=== PATIENT | female | born 1975 | race Caucasian/White ===

== ENCOUNTER 2016-12-23 19:10 | Emergency (ER) | payer OTHER ==
[~2016-12-23] VITALS: Ht 157.5 cm; Wt 97.5 kg
[~2016-12-23 19:10] MED LIST: ALBUTEROL 3 ML3 ML INH; AUGMENTIN 875-1 EACH PO; BACTRIM DS TAB1 EACH PO; BIOTIN2500 MCG PO; BIOTIN5 M1 PO; CALCIUM CARBON200 MG PO; CARAFATE1 GM/10 ML PO; CEPHALEXIN500 MG PO; CYMBALTA60 MG PO; DILAUDID2 MG PO; DRONABINOL2.5 M1 PO; FIORICET 325 MG1 TAB PO; FLEXERIL10 MG PO; GLUCERNA 1.2 C237 ML G TUBE; HYCET 325 MG/1473 ML PO; HYDRODIURIL 2525 MG PO; HYDROMORPHONE HC2 M1 PO; K-TAB ER10 MEQ PO; KEFLEX500 M1 PO; LOMOTIL 2.5-0.1 EACH PO; LOVENOX 4040 MG/0.4 SC; Labs; MASON NATURAL2000 IU PO; MEDROL DOSEPAK1 PAC PO; MULTI-DAY VITA1 EACH PO; NEURONTIN100 M1 PO; NIFEDIPINE ER90 MG PO; NOR-Q-D0.35 MG; NOR-Q-D0.35 MG PO; NOR-QD0.35 MG PO; PANTOPRAZOLE SO40 MG PO; PERCOCET 10-321 EACH PO; PERCOCET 325 MG-5 MG PO; PERCOCET 325 MG1 TA2 PO; PERCOCET 5-3251 EACH PO; PHENERGAN25 M2 PO; POTASSIUM CHLO20 ME2 PO; PREDNISONE10 MG PO; PREVACID SOLUTA15 MG PO; PROAIR HFA0.09 MG/Ac INH; PROMETHAZINE HC25 M3 PO; PROTONIX 40MG T40 MG PO; PROTONIX40 M3 PO; REGLAN INJ10 MG/2 M1 PO; REGLAN10 M1 PO; SINGULAIR10 MG PO; SYMBICORT 160/41 PUF INH; TESSALON PERLE100 MG PO; TYLENOL 16OMG/51 BOT PO; VITAMIN B-12500 MC1 SL; VITAMIN B122500 MC1 PO; VITAMIN D2000 UNIT PO; ZITHROMAX Z-PA250 M1 PO; ZOFRAN 4MG ORALL4 MG PO; ZOFRAN ODT4 M1 PO
--- NOTE | 2016-12-23 23:39 | ED GENERAL ADULT ---
History of Present Illness General Chief Complaint: Abdominal Pain/Flank Pain Stated Complaint: RIGHT SIDED AND PAIN, X 1 DAY Source: patient Exam Limitations: no limitations Vital Signs & Intake/Output Vital Signs & Intake/Output Vital Signs Date Time Temp Pulse Resp B/P B/P Pulse O2 O2 Flow FiO2 Mean Ox Delivery Rate 12/24 0117 97.5 56 22 114/58 100 12/23 2242 98.4 68 19 115/78 99 Room Air 12/23 1948 98.5 62 20 119/83 100 Room Air ED Intake and Output 12/24 0000 12/23 1200 Intake Total Output Total Balance Patient 215 lb Weight Weight Reported by Patient Measurement Method Allergies Coded Allergies: adhesive tape (RASH 12/23/16) Reconcile Medications Biotin (Unknown Strength) CAPSULE (Unknown Dose) PO DAILY SUPPLEMENT ( Reported) Calcium Carbonate (Unknown Strength) TAB.CHEW (Unknown Dose) PO DAILY SUPPLEMENT (Reported) Cholecalciferol (Vitamin D3) (Vitamin D) (Unknown Strength) CAPSULE (Unknown Dose) PO DAILY SUPPLEMENT (Reported) Cyanocobalamin (Vitamin B-12) (Vitamin B-12) (Unknown Strength) TAB.SUBL ( Unknown Dose) SL DAILY SUPPLEMENT (Reported) Gabapentin (Neurontin) 100 MG CAPSULE 1 CAP PO BID NERVE PAIN (Reported) Hydromorphone HCl 2 MG TABLET 1-2 TAB PO Q4P PRN pain Multivitamin (Multi-Day Vitamins) 1 EACH TABLET 1 TAB PO DAILY SUPPLEMENT ( Reported) Pantoprazole Sodium (Protonix) 40 MG TABLET.DR 1 TAB PO BID INDIGESTION Triage Note: TRIAGE: PT TO ER C/C R MID/LOW ABD PAIN WITH RADIATION TO R SIDE. ONSET THIS MORNING, CONSTANT SINCE ONSET. REPORTS HX OF UMBILICAL HERNIA REPAIR AND HAS PAIN IN THE EXACT SAME SPOT. ALSO HAS HX OF GASTRIC BYPASS/REVERSAL, FEEDING TUBE CHOLECYSTECTOMY, TUBAL LIGATION AND . -N/V, HAS DIARRHEA AT BASELINE AND IS NOT ANY WORSE TODAY. -URINARY S/S. CURRENTLY WITH MENSES, REPORTS IT STARTED OVER NIGHT AND "IT'S VERY HEAVY". Triage Nurses Notes Reviewed? yes : No Patient currently breastfeeds: No HPI: 41-year-old female with a past medical history of asthma, obstructive sleep apnea, GERD, status post hernia repair, status post cholecystectomy presenting with sudden onset of gradually worsening, constant, sharp nonradiating right lower quadrant pain 12 hours. Denies fevers, nausea, vomiting, dysuria, vaginal discharge. Last menstrual period 2 days ago. Reports diarrhea at baseline which is currently unchanged. (RIGO QUEEN PA-C) Past History Travel History Traveled to [place] past 21 day No Medical History Any Pertinent Medical History? see below for history Neurological: NONE EENT: NONE Cardiovascular: NONE Respiratory: asthma, obstructive sleep apnea Gastrointestinal: GERD, HERNIA REPAIR G-TUBE PLACED/REMOVED Hepatic: cholelithiasis, CHOLECYSTECTOMY Renal: NONE Musculoskeletal: NONE Psychiatric: NONE Endocrine: obesity Blood Disorders: NONE Cancer(s): NONE MANAGER INSIDE/Reproductive: NONE History of MRSA: No History of VRE: No History of CDIFF: No Surgical History Surgical History: cholecystectomy, , hernia repair-incisional, hernia repair-umbilical, tubal ligation, gastric bypass JONNY Psychosocial History Who do you live with Family Services at Home None What is your primary language Lithuanian Tobacco Use: Quit >30 days ago ETOH Use: occasional use Illicit Drug Use: denies illicit drug use Family History Family History, If Any: FATHER (Hep C/hepatoma). , Age 60+; Cause: Cirrhosis. MOTHER (Hep C). , Age 55; Cause: Pancreatic cancer. Relation not specified for: FH: asthma FH: diabetes mellitus FH: HTN (hypertension) FH: lung cancer FH: myocardial infarction FH: pancreatic cancer FH: thyroid cancer Hx Contributory? No (RIGO QUEEN PA-C) Review of Systems Review of Systems Constitutional: Reports: no symptoms. Respiratory: Reports: no symptoms. Cardiovascular: Reports: no symptoms. GI: Reports: abdominal pain, diarrhea. Denies: bloating, constipation, melena, nausea, changes in stool, vomiting. Genitourinary: Reports: no symptoms. (RIGO QUEEN PA-C) Physical Exam Physical Exam General Appearance: well developed/nourished, no apparent distress Head: atraumatic Respiratory: normal breath sounds, lungs clear Cardiovascular: regular rate/rhythm Gastrointestinal: normal bowel sounds, soft, non-distended, TTP in RLQ, neg obturator and psoas sign, no rebound or guarding, no CVAT. Core Measures ACS in differential dx? No CVA/TIA Diagnosis: No Severe Sepsis Present: No Septic Shock Present: No (RIGO QUEEN PA-C) Progress Differential Diagnoses I considered the following diagnoses in my evaluation of the patient: [ Appendicitis versus ovarian cyst versus ovarian torsion versus colitis versus enteritis versus hernia] Plan of Care: Orders Procedure Date/time Status CBC WITHOUT DIFFERENTIAL 12/24 2347 Complete BASIC METABOLIC PANEL 12/24 2347 Complete URINE 12/23 2249 Complete URINALYSIS 12/23 2249 Complete Laboratory Tests 12/24/16 0110: CBC w Diff MAN DIFF ORDERED, RBC 4.68, MCV 81.4, MCH 26.7 L, RDW 15.8 H, MPV 9.6, Gran % 39.3 L, Lymphocytes % 51.6 H, Monocytes % 4.1, Eosinophils % 3.3, Basophils % 1.7, Absolute Granulocytes 4.7, Segmented Neutrophils 30 L, Absolute Lymphocytes 6.2 H, Lymphocytes 62 H, Monocytes 5, Absolute Monocytes 0.5, Eosinophils 1, Absolute Eosinophils 0.4, Basophils 2, Absolute Basophils 0.2, Platelet Estimate ADEQUATE, Normocytic RBCs VERIFIED, Normochromic RBCs VERIFIED, PUBS MCHC 32.8 L, Fld Total RBCs Counted 100 12/24/16 0011: Anion Gap 7, Estimated GFR > 60, BUN/Creatinine Ratio 23.3, Glucose 81, Calcium 8.9 12/23/16 2253: Urinalysis LIGHT H, Urine Color STRAW, Urine Clarity HAZY H, Urine pH 6.0, Ur Specific [place] >= 1.030, Urine Protein TRACE H, Urine Ketones TRACE H, Urine Nitrite NEG, Urine Bilirubin NEG, Urine Urobilinogen 0.2, Ur Leukocyte Esterase NEG, Ur Microscopic SEDIMENT EXAMINED, Urine RBC RARE, Urine WBC RARE, Ur Epithelial Cells FEW, Urine Crystals 1+ CA OX H, Urine Bacteria MOD H, Urine Mucus MANY H, Urine Hemoglobin MOD H, Urine Glucose NEG, Urine Test NEGATIVE Labs and urine are unremarkable. CT scan was able to visualize the entire appendix which appeared normal. Given sudden onset of right lower quadrant pain has been constant and is getting worse cannot exclude ovarian torsion from differential. Ultrasound to evaluate for ovarian torsion pending. Patient signed out to . (BERNICE MALLORY,RIGO) Initial ED EKG: none (BERNICE MALLORY,RIGO) Comments: 12/24/2016 4:28:41 AM patient signed out to me by NAMRATA. Concern for right ovarian torsion. Ultrasound unfortunately unable to visualize the right ovary. 12/24/2016 4:37:56 AM I have updated the police on her test results. Although she is complaining of right sided lower abdominal pain she appears relatively comfortable. Although the right ovary was not visualized, I doubt an ovarian torsion. Patient states that the pain feels like soreness that she has had with prior surgeries. I feel she is stable for outpatient management with pain medication and PCP follow-up. (KRZYSZTOF LOPEZ,ANTONIO Collado) Departure Departure Disposition: HOME OR SELF CARE Condition: Stable Clinical Impression Primary Impression: Abdominal pain Referrals: DANIELLA DELGADO APRN (PCP/Family) Departure Forms: Customer Survey General Discharge Information (BERNICE MALLORY,RIGO) Departure Additional Instructions: Continue the Motrin as previously prescribed. Take Percocet if needed for pain. Follow-up with your primary care doctor on Sunday for reevaluation. Return if any concerns or sudden worsening. Thank you for choosing the [facility] Department for your care. It was a pleasure to serve you today. Antonio Gambino M.D. [facility] Prescriptions: Current Visit Scripts Oxycodone HCl/Acetaminophen (Percocet 5-325 MG Tablet) 1 TAB PO Q6P PRN pain #10 TAB (KRZYSZTOF LOPEZ,ANTONIO Collado) Critical Care Note Critical Care Note Critical Care Time: non-applicable (BERNICE MALLORY,RIGO)
[2016-12-24 01:22] LABS: ABSOLUTE BASOPHIL COUNT 0.2 /CUMM (0.0-0.2); ABSOLUTE EOSINOPHIL COUNT 0.4 /CUMM (0.0-0.7); ABSOLUTE GRANULOCYTE CT 4.7 /CUMM (1.4-6.5); ABSOLUTE LYMPH COUNT 6.2 /CUMM (1.2-3.4); ABSOLUTE MONOCYTE COUNT 0.5 /CUMM (0.10-0.60); BASOPHIL % 1.7 % (0.0-2.0); EOSINOPHIL % 3.3 % (0-5); GRANULOCYTE % 39.3 % (42.2-75.2); HEMATOCRIT 38.1 % (37-47); MEAN CORPUSCULAR HGB 26.7 PG (27.0-31.0); MEAN CORPUSCULAR HGB CONC 32.8 G/DL (33.0-37.0); MEAN CORPUSCULAR VOLUME 81.4 FL (81.0-99.0); MEAN PLATELET VOLUME 9.6 FL (7.4-10.4); PLATELET COUNT 221 /CUMM (130-400); RBC DISTRIBUTION WIDTH 15.8 % (11.5-14.5); RED BLOOD CELL CT 4.68 /CUMM (4.20-5.40); WHITE BLOOD CELL COUNT 11.9 /CUMM (4.8-10.8)
--- NOTE | 2016-12-24 01:45 | CT SCAN REPORT ---
EXAMINATION: CT ABDOMEN AND PELVIS WITH CONTRAST CLINICAL INFORMATION: Constant right lower quadrant abdominal pain. COMPARISON: Abdominal CT April 01, 2016. TECHNIQUE: Multidetector volumetric imaging was performed of the abdomen and pelvis before and after the IV administration of 80 mL of Omnipaque 300 intravenous contrast. Sagittal and coronal reformatted images were obtained on the technologist's workstation. FINDINGS: The lung bases are clear. The liver, spleen, adrenal glands, and pancreas are normal. The gallbladder is surgically absent. The kidneys exhibit symmetric nephrograms without evidence of hydronephrosis or nephrolithiasis. No focal renal lesions. There are postoperative changes involving the proximal stomach. Multiple small bowel anastomoses are appreciated. There is a surgical clip within the pelvis. The large and small bowel are normal in caliber without evidence of mechanical obstruction. No focal inflammatory changes adjacent to the large or the small bowel. The appendix is normal. There is no free air and there is no intra-abdominal free fluid. No mesenteric or retroperitoneal adenopathy. The pelvic viscera are normal. No pelvic adenopathy. No free fluid within the pelvis. There are no acute osseous abnormalities. Fat-containing umbilical hernia. IMPRESSION: No acute findings. The appendix is normal. No adnexal lesions are appreciated.
--- NOTE | 2016-12-24 04:06 | ULTRASOUND REPORT ---
EXAMINATION: US TRANSVAGINAL CLINICAL INFORMATION: Right lower quadrant abdominal pain/sudden onset. COMPARISON: Abdominal CT performed earlier today. TECHNIQUE: Transabdominal and transvaginal pelvic ultrasound are performed, the latter for better visualization. FINDINGS: The uterus measures 8.0 x 4.9 x 5.0 cm and is anteroverted. Cervical length of 3.0 cm. Endometrial stripe thickness is 0.2 cm. No uterine masses. The right ovary is not visualized on this exam. The left ovary measures 2.7 x 1.3 x 1.4 cm with a volume of 2.4 mL. No left adnexal lesion. Doppler of the left ovary is very limited due to technical factors with arterial flow visualized. IMPRESSION: Examination is limited by bowel gas and the right ovary could not be visualized. I cannot therefore exclude right-sided ovarian torsion on this exam. No left-sided adnexal lesion. No evidence of left ovarian torsion.
[2016-12-24] MEDS ORDERED: PERCOCET 5-3251 EACH PO (04:39)
[2016-12-24 04:49] VITALS: BP 102/56
[2016-12-24] MEDS ORDERED: BETHANECHOL CHL25 M1 PO (04:50)
[2016-12-24] MEDS ORDERED: AMITRIPTYLINE H25 M2 PO (04:50)
== END 2016-12-24 04:53 ==
LOC: ERH 19:10
PROVIDERS: Physician Assistant
DX: R10.31 Right lower quadrant pain (principal)
CPT/HCPCS: 74177; 81001; 81025; 96361; 96374